=== PATIENT | male | born 2000 ===

== ENCOUNTER 2022-01-23 17:45 | Emergency (ER) | payer OTHER ==
[2022-01-23] MEDS ORDERED: KEFLEX250 MG PO (19:29)
== END 2022-01-23 19:39 | disposition home or self-care (01) ==
LOC: FER 17:45
DX: S61.211A Laceration without foreign body of left index finger without damage to nail, initial encounter (principal); X58.XXXA Exposure to other specified factors, initial encounter; Y92.89 Other specified places as the place of occurrence of the external cause; Y99.0 Civilian activity done for income or pay
CPT/HCPCS: 73140